=== PATIENT | female | born 1985 | race Two or more races ===

== ENCOUNTER 2016-09-16 18:10 | Emergency (ER) | payer BC, MEDICAID ==
[~2016-09-16] VITALS: Ht 157.5 cm; Wt 54.4 kg
[~2016-09-16 18:10] MED LIST: BENTYL10 MG ORAL
[2016-09-16] MEDS ORDERED: NKM (18:26)
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
[2016-09-16] MEDS ORDERED: NAPROSYN500 M1 ORAL (19:14)
[2016-09-16 19:25] VITALS: BP 120/74
--- NOTE | 2016-09-17 11:24 | Diagnostic Imaging Report ---
Indication: Pain Findings: 3 views of the right wrist were obtained. No acute fractures, malalignment, erosions or periostitis are identified. Bone mineralization is within normal limits. Soft tissues are unremarkable. Impression: Negative examination of the right wrist.
== END 2016-09-16 19:25 | disposition home or self-care (01) ==
LOC: EMR 18:47
DX: S63.501A Unspecified sprain of right wrist, initial encounter (principal); V43.52XA Car driver injured in collision with other type car in traffic accident, initial encounter; Y93.9 Activity, unspecified; Y92.410 Unspecified street and highway as the place of occurrence of the external cause
CPT/HCPCS: 29260; 99283

== ENCOUNTER 2016-12-03 16:16 | Emergency (ER) | payer BC, MEDICAID ==
[~2016-12-03] VITALS: Ht 157.5 cm; Wt 54.4 kg
[~2016-12-03 16:16] MED LIST changes: +NAPROSYN500 M1 ORAL; +NKM
--- NOTE | 2016-12-03 16:58 | Emergency Room Report ---
History of Present Illness General Chief Complaint: Headache Source: Patient Present Illness HPI 31 YO Female presents to the ED C/O 01/23 in severity burning/constant left sided head and neck pain progressive x 2 days with mild sensitivity to light. pt. states she took tylenol with no relief this am. pt. denies trauma or fall, denies nausea or vomiting. pt. denies dizziness or changes to her vision. pt. reports hx of cluster headache several years ago but states these symptoms are different. pt. denies fever, chills or rash. pt. reports pain radiates between the left shoulder to the left side of the head, reports burning feels superficial not deep. Denies abdominal pain, dysuria, frequency or . reports having an IUD in place. denies recent spinal procedure or LP. Denies imbalance, CP, Palpitations, LOC, AMS, dizziness, Changes in Vision, Sensation, paresthesias, or a sudden onset of a severe headache. Allergies: Coded Allergies: No Known Allergies (Unverified , 07/27/15) Patient History Past Medical History: see triage record Past Surgical History: none Pertinent Family History: none Last Menstrual Period: 10/28/16 Now: No Reviewed Nursing Documentation: PMH: Agreed, PSxH: Agreed Nursing Documentation-PMH Past Medical History: No Stated History Review of Systems All Other Systems: negative except mentioned in HPI Physical Exam Vital Signs Date Time Temp Pulse Resp B/P Pulse Ox O2 Delivery O2 Flow Rate FiO2 12/03/16 16:25 98.1 83 15 119/80 99 Room Air Sp02 EP Interpretation: reviewed, normal General Appearance: no apparent distress, alert, GCS 15, non-toxic Head: normocephalic, atraumatic Eyes: bilateral eye PERRL, bilateral eye normal inspection, bilateral eye other - no appreciable photophobia on exam, no erythema of the eyes. ENT: hearing grossly normal, normal voice, TMs + canals normal, uvula midline, moist mucus membranes, other - no erythema, no tonsillar swelling, no LAD Neck: full range of motion, no meningismus, no bony tend, supple/symm/no masses , tender lateral - left sided ttp radiating down into the left shoulder and up to the left occipital area. Respiratory: chest non-tender, lungs clear, normal breath sounds, speaking full sentences Cardiovascular #1: regular rate, rhythm, no edema Genitourinary: normal inspection, no CVA tenderness Musculoskeletal: back normal, gait/station normal, normal range of motion, tender - TTP to the left trapezius /cervical paraspinal musculature, no midline bony ttp, FROM Neurologic: alert, oriented x3, responsive, motor strength/tone normal, sensory intact, cerebellar normal, normal gait, speech normal, no pronator, other - equal principal technical architect strength, negative hoffmans, negative rhomberg Psychiatric: judgement/insight normal, memory normal, mood/affect normal Skin: normal color, no rash, warm/dry, well hydrated Lymphatic: no adenopathy Medical Decision Making PA Attestation Dr. Monsalve is my supervising Physician whom patient management has been discussed with. Diagnostic Impression: Primary Impression: UTI (urinary tract infection) Qualified Codes: N30.00 - Acute cystitis without hematuria Additional Impression: Headache Qualified Codes: R51 - Headache ER Course 31 YO Female presents to the ED C/O 01/23 in severity burning/constant left sided head and neck pain progressive x 2 days with mild sensitivity to light. pt. states she took tylenol with no relief this am. pt. denies trauma or fall, denies nausea or vomiting. pt. denies dizziness or changes to her vision. pt. reports hx of cluster headache several years ago but states these symptoms are different. pt. denies fever, chills or rash. pt. reports pain radiates between the left shoulder to the left side of the head, reports burning feels superficial not deep. Denies abdominal pain, dysuria, frequency or . reports having an IUD in place. denies recent spinal procedure or LP. Denies imbalance, CP, Palpitations, LOC, AMS, dizziness, Changes in Vision, Sensation, paresthesias, or a sudden onset of a severe headache. Described as constant ache and burning sensation radiating between left posterior shoulder to the left posterior head. Ddx considered but are not limited to migraine, SAH, Psedudo motor Cerebri, Mass lesion, Cluster HARVEY, Tension HARVEY, vertebral artery dissection, UTI, . Shingles, Muscle strain. Vital signs: are WNL, pt. is afebrile H&PE are most consistent with progressive HARVEY in a non -toxic, neurologically normal patient without fever or meningismus. pt. does not exhibit focal neurological deficit or weakness on physical exam. pt. description of HARVEY is not consistent with migraine, tension, or cluster HARVEY. will r/o UTI. suspicious for muscular strain vs spasm given ttp to the left trapezius. ORDERS: - none required at this time, dx is clinical. -UA: few bacteria with elevated WBC's and leuks will treat as UTI even though squamous cells are present. Urine hcg: negative ED INTERVENTIONS: - Reglan PO -IM Toradol -Flexeril PO I do not suspect an emergent condition at this time. with current presentation pt. is stable for close outpatient follow up and ED Return precautions. d/w pt. UA is suspicious for UTI, and that I will treat as neck muscle strain due to ttp to the left trapezius. d/w pt. to follow up with PCP in 3-5 days and Neurologist if symptoms continue. d/w pt. to return promptly to the ED with any new symptoms or worsening of her current symptoms. DISCHARGE: At this time pt. is stable for d/c to home. Will provide printed patient care instructions, and any necessary prescriptions. Care plan and follow up instructions have been discussed with the patient prior to discharge. Labs Test 12/03/16 17:00 Urine Color Pale yellow Urine Appearance Clear Urine pH 7 (4.5-8.0) Urine Specific [place] 1.010 (1.005-1.035) Urine Protein Negative (NEGATIVE) Urine Glucose (UA) Negative (NEGATIVE) Urine Ketones Negative (NEGATIVE) Urine Occult Blood Negative (NEGATIVE) Urine Nitrite Negative (NEGATIVE) Urine Bilirubin Negative (NEGATIVE) Urine Urobilinogen Normal MG/DL (0.0-1.0) Urine Leukocyte Esterase 1+ (NEGATIVE) Urine RBC 0 /HPF (0 - 2) Urine WBC 5-10 /HPF (0 - 2) Urine Squamous Epithelial Cells Many /LPF (NONE/OCC) Urine Bacteria Few /HPF (NONE) Urine HCG, Qualitative Negative Last Vital Signs Date Time Temp Pulse Resp B/P Pulse Ox O2 Delivery O2 Flow Rate FiO2 12/03/16 16:25 98.1 83 15 119/80 99 Room Air Disposition: HOME, SELF-CARE Condition: Stable Scripts Nitrofurantoin Monohyd/M-Cryst* (MACROBID 100 MG*) 100 Mg Capsule 100 MG ORAL EVERY 12 HOURS for 5 Days, #10 CAP Prov: Xochitl Frye.Bj 12/03/16 Ibuprofen* (MOTRIN*) 600 Mg Tablet 600 MG ORAL THREE TIMES A DAY, #20 TAB 0 Refills Prov: Xochitl Frye 12/03/16 Cyclobenzaprine Hcl* (FLEXERIL*) 10 Mg Tablet 10 MG ORAL THREE TIMES A DAY for 7 Days, #21 TAB Prov: Xochitl Frye 12/03/16 Referrals: [facility]ERR[facility] (PCP) Patient Instructions: General Headache Without Cause, Urinary Tract Infection, Upue-in-Qjhi Additional Instructions: Take medications as directed. Follow up with a Primary Care Provider in 3-5 days, even if your symptoms have resolved. --Please review list of primary care clinics, if you do not already have a primary care provider Return sooner to ED if new symptoms occur, or current symptoms become worse. Do not drink alcohol, drive, or operate heavy machinery while taking Flexeril as this may cause drowsiness. - Please note that this Emergency Department Report was dictated using [employer] engine assembler technology software, occasionally this can lead to erroneous entry secondary to interpretation by the dictation equipment. Xochitl Frye Dec 03, 2016 16:58
[2016-12-03] MEDS ORDERED: Ketorolac 60mg Inj IM ONE (17:00)
[2016-12-03 17:10] VITALS: BP 119/80
[2016-12-03 17:14] LABS: APPEARANCE,URINE CLEAR; KETONES,URINE NEGATIVE (NEGATIVE); LEUKOCYTE ESTERASE ,URINE 1+ (NEGATIVE); NITRITE,URINE NEGATIVE (NEGATIVE); PH,URINE 7 (4.5-8.0); PROTEIN,URINE NEGATIVE (NEGATIVE); UROBILINOGEN,URINE NORMAL MG/DL (0.0-1.0)
[2016-12-03 17:21] LABS: BACTERIA,URINE FEW /HPF; RBC,URINE 0 /HPF (0 - 2); SQUAMOUS EPITHELIAL CELL,UR MANY /LPF (NONE/OCC)
[2016-12-03] MEDS ORDERED: CYCLOBENZAPRINE10 MG ORAL (17:52)
[2016-12-03] MEDS ORDERED: NITROFURANTOIN100 M2 ORAL (17:52)
[2016-12-03] MEDS ORDERED: IBUPROFEN600 MG ORAL (17:52)
[2016-12-03 17:55] VITALS: BP 119/80
[2016-12-03] MEDS ORDERED: Cyclobenzaprine 10mg Tab ORAL ONE (18:00)
== END 2016-12-03 18:03 | disposition home or self-care (01) ==
LOC: EMR 16:53
DX: N39.0 Urinary tract infection, site not specified (principal); R51 Headache; M54.2 Cervicalgia; Z97.5 Presence of (intrauterine) contraceptive device; M25.512 Pain in left shoulder
CPT/HCPCS: 81003; 81025; 96372; 99283

== ENCOUNTER 2018-02-07 11:52 | Emergency (ER) | payer BC, MEDICAID ==
[~2018-02-07] VITALS: Ht 157.5 cm; Wt 54.4 kg
[~2018-02-07 11:52] MED LIST changes: +CIPROFLOXACIN500 M2 ORAL; +CYCLOBENZAPRINE10 MG ORAL; +IBUPROFEN600 MG ORAL; +NITROFURANTOIN100 M2 ORAL
[2018-02-07] MEDS ORDERED: NKM (12:00)
[2018-02-07] MEDS ORDERED: LORazepam 1mg tab ORAL ONE (12:15)
[2018-02-07 12:42] VITALS: BP 132/78
[2018-02-07 12:55] LABS: APPEARANCE,URINE CLEAR; BILIRUBIN, URINE NEGATIVE (NEGATIVE); COLOR,URINE PALE YELLOW; GLUCOSE, URINE (UA) NEGATIVE (NEGATIVE); KETONES,URINE NEGATIVE (NEGATIVE); LEUKOCYTE ESTERASE ,URINE 2+ (NEGATIVE); NITRITE,URINE NEGATIVE (NEGATIVE); PH,URINE 7 (4.5-8.0); PROTEIN,URINE NEGATIVE (NEGATIVE); UROBILINOGEN,URINE NORMAL MG/DL (0.0-1.0)
--- NOTE | 2018-02-07 13:00 | Emergency Room Report ---
History of Present Illness General Chief Complaint: General Complaint Source: Patient Present Illness HPI 33-year-old female presents to the emergency department complaining of intermittent episodes of chest discomfort that she describes as tightness in the middle of her sternum that feels as though something is stuck inside. Patient also reports episode of hyperventilation this morning. Patient states she feels as though she cannot take a deep breath and has to actively think about breathing. Patient states that this morning she experienced dizziness and had numbness and tingling in her fingers. Patient denies syncope she reports history of heart problems in her family she denies personal history of cardiac abnormalities were problems. Patient denies and states she is on her period right now. she denies fevers, chills, or vomiting. Patient ascribes nausea and decrease in appetite. Patient states that she just finished taking exams at school and she endorses that the last few nights she is not been getting much sleep and estimates about 3-4 hours of sleep nightly. Patient denies similar episodes in the past. She denies cough, aspiration, or history of GERD. Patient denies burning sensations in the epigastric area. She denies recent travel and reports that she is on control medication. Denies leg pain/claudication. Denies drug use or hx of substance abuse. Pt. reports that she is currently on treatment for UTI. Allergies: Coded Allergies: No Known Allergies (Unverified , 07/27/15) Patient History Past Medical History: see triage record Past Surgical History: unable to obtain Pertinent Family History: none Last Menstrual Period: 01/31/18 Now: No Reviewed Nursing Documentation: PMH: Agreed; PSxH: Agreed Nursing Documentation-PMH Hx Cardiac Problems: No - highcholesterol (control by diet) Review of Systems All Other Systems: negative except mentioned in HPI Physical Exam Vital Signs Date Time Temp Pulse Resp B/P (MAP) Pulse Ox O2 Delivery O2 Flow Rate FiO2 02/07/18 11:54 98.1 98 18 146/85 98 Room Air Sp02 EP Interpretation: reviewed, normal General Appearance: no apparent distress, alert, GCS 15, non-toxic Head: normocephalic, atraumatic Eyes: bilateral eye normal inspection, bilateral eye PERRL ENT: hearing grossly normal, normal voice Neck: full range of motion Respiratory: lungs clear, normal breath sounds, no respiratory distress, no wheezing, speaking full sentences Cardiovascular #1: regular rate, rhythm Musculoskeletal: back normal, gait/station normal, normal range of motion, non- tender Neurologic: alert, oriented x3, responsive, motor strength/tone normal, sensory intact, speech normal, grossly normal Psychiatric: judgement/insight normal Skin: normal color, no rash, warm/dry, well hydrated Medical Decision Making PA Attestation Dr. Monsalve is my supervising Physician whom patient management has been discussed with. Diagnostic Impression: Primary Impression: Anxiety as acute reaction to exceptional stress ER Course 33-year-old female presents to the emergency department complaining of intermittent episodes of chest discomfort that she describes as tightness in the middle of her sternum that feels as though something is stuck inside. Patient also reports episode of hyperventilation this morning. Patient states she feels as though she cannot take a deep breath and has to actively think about breathing. Patient states that this morning she experienced dizziness and had numbness and tingling in her fingers. Patient denies syncope she reports history of heart problems in her family she denies personal history of cardiac abnormalities were problems. Patient denies and states she is on her period right now. she denies fevers, chills, or vomiting. Patient ascribes nausea and decrease in appetite. Patient states that she just finished taking exams at school and she endorses that the last few nights she is not been getting much sleep and estimates about 3-4 hours of sleep nightly. Patient denies similar episodes in the past. She denies cough, aspiration, or history of GERD. Patient denies burning sensations in the epigastric area. She denies recent travel and reports that she is on control medication. Denies leg pain/claudication. Denies drug use or hx of substance abuse. Pt. reports that she is currently on treatment for UTI. Ddx considered but are not limited to anxiety, RI, PE, asthma, thyroid storm, hyperthyroid, a-fib, EPS just to name a few. Vital signs: are WNL, pt. is afebrile H&PE are most consistent with anxiety attack- no cardiac RF, some RF for PE is that the pt. is on control- PERC rules cannot be applied, WELLS Criteria of 0 -Low risk group: 1.3% chance of PE in an ED population ORDERS: -EKG: NSR 88 BPM -CXR: unremarkable -UA: - consistent with menses and UTI- ( pt. already on abx) -Urine Hcg:Negative ED INTERVENTIONS: - 1mg Ativan D/w pt An emergent condition is not identified at this time, d/w pt. clinical decision making of this process. D/w pt. that anxiety may require ongoing treatment by a psychiatric professional or PCP if symptoms are occuring frequently. d/w pt. the risks of benzodiazepines including dependence. Pt. instructed to only take medication as an abortive therapy and not for prevention. - I reviewed this pt. CURES report and there are no active prescriptions for controlled substances in [place] at this time. DISCHARGE: At this time pt. is stable for d/c to home. Will provide printed patient care instructions, and any necessary prescriptions. Care plan and follow up instructions have been discussed with the patient prior to discharge. EKG Diagnostic Results EP Interpretation: Dr. Monsalve Rate: normal - 88 BPM Rhythm: NSR ST Segments: no acute changes ASA given to the pt in ED: No PA Scribe Text This Interpretation was scribed by ALDAIR Frye. Chest X-Ray Diagnostic Results Chest X-Ray Diagnostic Results : Chest X-Ray Ordered: Yes # of Views/Limited/Complete: 1 View Indication: Shortness of Breath EP Interpretation: Yes ALDAIR Xray: Interpretation reviewed, by supervising MD, and agrees with findings. Interpretation: no consolidation, no effusion, no pneumothorax, no acute cardiopulmonary disease Impression: No acute disease Electronically Signed by: Xochitl Frye PA-C Last Vital Signs Date Time Temp Pulse Resp B/P (MAP) Pulse Ox O2 Delivery O2 Flow Rate FiO2 02/07/18 12:42 98.1 68 20 132/78 99 Room Air Disposition: HOME, SELF-CARE Condition: Stable Scripts Albuterol Sulfate* (ALBUTEROL SULFATE MDI*) 8.5 Gm Hfa.aer.ad 2 PUFF INH Q4H, #1 INH 0 Refills Prov: Xochitl Frye 02/07/18 Lorazepam* (ATIVAN*) 1 Mg Tablet 1 MG ORAL Q8HR PRN for Per rx protocol, #6 TAB Prov: Xochitl Frye 02/07/18 Patient Instructions: Generalized Anxiety Disorder, Shortness of Breath, Easy- to-Read Additional Instructions: Take medications as directed. Follow up with a Primary Care Provider in 3-5 days, even if your symptoms have resolved. --Please review list of primary care clinics, if you do not already have a primary care provider Return sooner to ED if new symptoms occur, or current symptoms become worse. Do not drink alcohol, drive, or operate heavy machinery while taking Ativan as this may cause drowsiness. - Please note that this Emergency Department Report was dictated using [employer] support equipment assembler technology software, occasionally this can lead to erroneous entry secondary to interpretation by the dictation equipment. Xochitl Frye Feb 07, 2018 13:00
[2018-02-07] MEDS ORDERED: ATIVAN1 MG ORAL (13:37)
[2018-02-07 13:50] VITALS: BP 132/78
[2018-02-07] MEDS ORDERED: ALBUTEROL SULF8.5 GM INH (13:57)
--- NOTE | 2018-02-07 14:04 | Diagnostic Imaging Report ---
Indication: Cough Comparison: None A single view chest radiograph was obtained. Findings: Cardiomediastinal appearance is within normal limits for age. The lungs are clear. Pulmonary vascularity is appropriate. The diaphragmatic contour is smooth and costophrenic angles are sharp. No pleural effusions are identified. The bones are unremarkable. Impression: No acute findings
== END 2018-02-07 13:50 | disposition home or self-care (01) ==
LOC: EMR 13:49
DX: F41.9 Anxiety disorder, unspecified (principal); R07.89 Other chest pain
CPT/HCPCS: 71045; 81003; 81025; 93005; 99283

== ENCOUNTER 2018-04-25 15:27 | Emergency (ER) | payer BC, MEDICAID ==
[~2018-04-25] VITALS: Ht 160 cm; Wt 53.5 kg
[~2018-04-25 15:27] MED LIST changes: +ALBUTEROL SULF8.5 GM INH; +ATIVAN1 MG ORAL
[2018-04-25] MEDS ORDERED: ADDERAL20 MG ORAL (15:55)
[2018-04-25 15:59] VITALS: BP 108/58
--- NOTE | 2018-04-25 15:59 | NUR ---
ED Nurse Note: pt walked in c/o abd pain and chills, diarrhea and nausea x 2 days, pt states pain is sharp, denies eating anything or injuries. Pt AA&ox4, gcs=15, skin warm and dry, resp even and unlabored, -n/v/d, ambulates w/ steady gait, will cont monitor.
[2018-04-25] MEDS ORDERED: Mylanta II UD 30ml ORAL ONE (16:15)
[2018-04-25] MEDS ORDERED: Lidocaine 2% Visc 15ml soln ORAL ONE (16:15)
--- NOTE | 2018-04-25 16:38 | Emergency Room Report ---
History of Present Illness General Chief Complaint: Abdominal Pain Source: Patient Present Illness HPI 33-year-old female presents to the emergency department complaining of 10 out of 10 in severity epigastric abdominal pain with pain in her back as well 2 days. Patient reports acute onset after eating and that her pain has been constant. Patient is nausea but denies vomiting she reports tenderness to the epigastric area as well. Patient denies she denies constipation or diarrhea. Patient describes her pain as sharp. Patient states that pancreas problems run in her family and that she is positive for autoimmune antibodies. Patient denies significant past medical history otherwise. Patient denies history of high blood pressure she denies chest pain, dizziness or paresthesias to the lower extremities. Patient denies dyspnea or chest pain. Allergies: Coded Allergies: No Known Allergies (Unverified , 07/27/15) Patient History Past Medical History: see triage record Past Surgical History: none Pertinent Family History: none Last Menstrual Period: 2 weeks ago Reviewed Nursing Documentation: PMH: Agreed; PSxH: Agreed Nursing Documentation-PMH Past Medical History: No History, Except For Hx Cardiac Problems: No - high cholesterol Hx Hypertension: No Hx Pacemaker: No Hx Asthma: No Hx COPD: No Hx Diabetes: No Hx Cancer: No Hx Gastrointestinal Problems: No Hx Dialysis: No History Of Psychiatric Problem: No Hx Neurological Problems: Yes - ADHD Hx Cerebrovascular Accident: No Hx Seizures: No Review of Systems All Other Systems: negative except mentioned in HPI Physical Exam Vital Signs Date Time Temp Pulse Resp B/P (MAP) Pulse Ox O2 Delivery O2 Flow Rate FiO2 04/25/18 15:50 98.8 104 20 108/58 99 Room Air Sp02 EP Interpretation: reviewed, normal General Appearance: alert, GCS 15, non-toxic, mild distress Head: normocephalic, atraumatic Eyes: bilateral eye normal inspection, bilateral eye PERRL ENT: hearing grossly normal, normal voice Neck: full range of motion Respiratory: lungs clear, normal breath sounds, speaking full sentences Cardiovascular #1: regular rate, rhythm Gastrointestinal: normal bowel sounds, soft, non-distended, no guarding, tenderness - Epigastric and RUQ ttp. Rectal: deferred Genitourinary: normal inspection, no CVA tenderness Musculoskeletal: back normal, gait/station normal, normal range of motion, non- tender Neurologic: alert, oriented x3, responsive, motor strength/tone normal, sensory intact, speech normal, grossly normal Psychiatric: judgement/insight normal Skin: normal color, no rash, warm/dry, well hydrated Medical Decision Making PA Attestation Dr. Rosa is my supervising Physician whom patient management has been discussed with. Diagnostic Impression: Primary Impression: Acute hepatitis ER Course 29-year-old female presents to the emergency department complaining of 7 out of 10 in severity sharp pain under the left clavicle and left shoulder region 3 days. Patient reports pain with attempts to raise her arm and attempts to sleep , and side. Patient reports pain started after awakening when she had to sleep on the floor. Patient states that she has been having a sleep on the floor lately and makes it very difficult for her to sleep at night with the pain. Patient states sometimes she has pain with taking a deep breath. She denies shortness of breath or difficulty breathing. Patient denies abdominal pain, flank pain or tenderness, nausea, vomiting or jaw pain. Patient denies cardiac history. Patient reports that she is she just recently found out by having a positive test at home. Patient states she is only been taking Tylenol for her symptoms however she is not getting any relief. She denies trauma or fall she denies strenuous activities or heavy lifting. Patient reports on occasion pain will radiate down the left arm she denies paresthesias in that she is attempting to sleep on that side. She denies unilateral weakness, headache, dizziness, changes in her vision. Pt. reports LMP was February, she missed her period in March, and tested urine 4 days ago on Sunday. She denies vaginal d/c. Ddx considered but are not limited to gastritis, aortic dissection, acute appy, UC, PUD, GE, pancreatitis, gallstone, PNA just to name a few Vital signs: are WNL, pt. is afebrile H&PE are most consistent with Gastritis, will r/o pancreatitis. Dissection of very very low suspicion at this time. ORDERS: -CBC, CMP, LIPASE: Significant elevation in LFT's and Alk Phos, normal lipase, no leukocytosis. -UA: Indicative for UTI -URINE HCG: Negative -PT/PTT : both elevated PT is 12.6 ED INTERVENTIONS: -PO zofran 4mg. / Pepcid, Mylanta, Lidocaine --PO -4mg MOrphine IV - *Accepting MD: GUEVARA DISPOSITION: at this time pt. will be admitted to Dr. Mae for acute hepatitis. Dr. Mae agreed to admit the pt. and to continue pt. care management. Labs Test 04/25/18 16:26 04/25/18 19:00 White Blood Count 2.5 K/UL (4.8-10.8) Red Blood Count 4.46 M/UL (4.20-5.40) Hemoglobin 13.3 G/DL (12.0-16.0) Hematocrit 40.4 % (37.0-47.0) Mean Corpuscular Volume 90 FL (80-99) Mean Corpuscular Hemoglobin 29.8 PG (27.0-31.0) Mean Corpuscular Hemoglobin Concent 33.0 G/DL (32.0-36.0) Red Cell Distribution Width 11.2 % (11.6-14.8) Platelet Count 264 K/UL (150-450) Mean Platelet Volume 6.4 FL (6.5-10.1) Neutrophils (%) (Auto) % (45.0-75.0) Lymphocytes (%) (Auto) % (20.0-45.0) Monocytes (%) (Auto) % (1.0-10.0) Eosinophils (%) (Auto) % (0.0-3.0) Basophils (%) (Auto) % (0.0-2.0) Differential Total Cells Counted 100 Neutrophils % (Manual) 58 % (45-75) Lymphocytes % (Manual) 32 % (20-45) Monocytes % (Manual) 7 % (1-10) Eosinophils % (Manual) 2 % (0-3) Basophils % (Manual) 1 % (0-2) Band Neutrophils 0 % (0-8) Platelet Estimate Adequate Platelet Morphology Normal Red Blood Cell Morphology Normal Urine Color Yellow Urine Appearance Clear Urine pH 8 (4.5-8.0) Urine Specific Perry 1.010 (1.005-1.035) Urine Protein Negative (NEGATIVE) Urine Glucose (UA) Negative (NEGATIVE) Urine Ketones Negative (NEGATIVE) Urine Blood Negative (NEGATIVE) Urine Nitrite Negative (NEGATIVE) Urine Bilirubin Negative (NEGATIVE) Urine Urobilinogen Normal MG/DL (0.0-1.0) Urine Leukocyte Esterase 1+ (NEGATIVE) Urine RBC 0-2 /HPF (0 - 2) Urine WBC 0-2 /HPF (0 - 2) Urine Squamous Epithelial Cells Few /LPF (NONE/OCC) Urine Bacteria Moderate /HPF (NONE) Urine HCG, Qualitative Negative (NEGATIVE) Sodium Level 134 MMOL/L (136-145) Potassium Level 3.8 MMOL/L (3.5-5.1) Chloride Level 99 MMOL/L (98-107) Carbon Dioxide Level 25 MMOL/L (21-32) Anion Gap 10 mmol/L (5-15) Blood Urea Nitrogen 10 mg/dL (7-18) Creatinine 0.9 MG/DL (0.55-1.30) Estimat Glomerular Filtration Rate > 60 mL/min (>60) Glucose Level 108 MG/DL (74-106) Calcium Level 9.3 MG/DL (8.5-10.1) Total Bilirubin 1.6 MG/DL (0.2-1.0) Direct Bilirubin 0.8 MG/DL (0.0-0.3) Aspartate Amino Transf (AST/SGOT) 602 U/L (15-37) Alanine Aminotransferase (ALT/SGPT) 850 U/L (12-78) Alkaline Phosphatase 216 U/L (46-116) Total Protein 8.3 G/DL (6.4-8.2) Albumin 4.1 G/DL (3.4-5.0) Globulin 4.2 g/dL Albumin/Globulin Ratio 1.0 (1.0-2.7) Amylase Level 52 U/L (25-115) Lipase 266 U/L (73-393) Prothrombin Time 12.6 SEC (9.30-11.50) Prothromb Time International Ratio 1.2 (0.9-1.1) Activated Partial Thromboplast Time 21 SEC (23-33) CT/MRI/US Diagnostic Results CT/MRI/US Diagnostic Results : Imaging Test Ordered: Abdominal US Impression "Negative Gutierrez sign, liver, gallbladder, pancreas are within normal limits. No evidence of gallstones." Per official radiology report- Please see report for specific details. Last Vital Signs Date Time Temp Pulse Resp B/P (MAP) Pulse Ox O2 Delivery O2 Flow Rate FiO2 04/25/18 15:50 98.8 104 20 108/58 99 Room Air Disposition: ADMITTED INPATIENT Condition: Xochitl Og Apr 25, 2018 16:38
[2018-04-25 16:53] LABS: HEMATOCRIT 40.4 % (37.0-47.0); HEMOGLOBIN 13.3 G/DL (12.0-16.0); MEAN CORPUSCULAR VOLUME 90 FL (80-99); PLATELET COUNT 264 K/UL (150-450); RED BLOOD COUNT 4.46 M/UL (4.20-5.40); RED CELL DISTRIBUTION WIDTH 11.2 % (11.6-14.8); WHITE BLOOD COUNT 2.5 K/UL (4.8-10.8)
[2018-04-25 17:00] VITALS: BP 110/58
--- NOTE | 2018-04-25 17:00 | NUR ---
ED Nurse Note: pt reports pain is tolerable at this time after medications, resp even and unlabored, will cont monitor. reports nausea is better with medication
[2018-04-25 17:08] LABS: APPEARANCE,URINE CLEAR; BILIRUBIN, URINE NEGATIVE (NEGATIVE); GLUCOSE, URINE (UA) NEGATIVE (NEGATIVE); KETONES,URINE NEGATIVE (NEGATIVE); LEUKOCYTE ESTERASE ,URINE 1+ (NEGATIVE); NITRITE,URINE NEGATIVE (NEGATIVE); PH,URINE 8 (4.5-8.0); PROTEIN,URINE NEGATIVE (NEGATIVE); UROBILINOGEN,URINE NORMAL MG/DL (0.0-1.0)
[2018-04-25 17:11] LABS: COLOR,URINE YELLOW
[2018-04-25 17:18] LABS: ANION GAP 10 mmol/L (5-15); BLOOD UREA NITROGEN 10 mg/dL (7-18); CALCIUM 9.3 MG/DL (8.5-10.1); CARBON DIOXIDE 25 MMOL/L (21-32); CHLORIDE 99 MMOL/L (98-107); CREATININE 0.9 MG/DL (0.55-1.30); POTASSIUM 3.8 MMOL/L (3.5-5.1); SODIUM 134 MMOL/L (136-145)
[2018-04-25 17:28] LABS: ALANINE AMINOTRANSFERASE 850 U/L (12-78); ALBUMIN 4.1 G/DL (3.4-5.0); ALKALINE PHOSPHATASE 216 U/L (46-116); AMYLASE 52 U/L (25-115); ASPARTATE AMINO TRANSFERASE 602 U/L (15-37); BILIRUBIN,TOTAL 1.6 MG/DL (0.2-1.0)
[2018-04-25 17:31] LABS: BILIRUBIN,DIRECT 0.8 MG/DL (0.0-0.3)
--- NOTE | 2018-04-25 18:30 | NUR ---
ED Nurse Note: ultrasound at bedside.
[2018-04-25 19:00] VITALS: BP 114/60
[2018-04-25] MEDS ORDERED: ADDERALL 10 MG10 MG ORAL (19:55)
[2018-04-25] MEDS ORDERED: VITAMIN C500 M1 ORAL (19:55)
[2018-04-25] MEDS ORDERED: MULTIVITAMINS1 EAC2 ORAL (19:55)
[2018-04-25] MEDS ORDERED: COLLAGEN PLUS1 EACH PO (19:55)
[2018-04-25 20:01] LABS: INR 1.2 (0.9-1.1)
[2018-04-25 21:00] VITALS: BP 118/60
--- NOTE | 2018-04-25 21:00 | NUR ---
ED Nurse Note: Pt reports pain 8/10 progressively worsening, PA notified.
[2018-04-25] MEDS ORDERED: Morphine Sulfate 4mg/ml Inj (IV/IM USE ONLY) IVP ONE (21:15)
[2018-04-25 21:50] VITALS: BP 125/73
--- NOTE | 2018-04-25 21:50 | NUR ---
ED Nurse Note: pt left with all her belongings. vss. ambulatory w/ steady gait, iv intact and patent.
--- NOTE | 2018-04-25 21:50 | NUR ---
ED Nurse Note: spoke with JERMAINE Ruff from [facility] in [facility], pt going to room 506 A, ambulance personnel at the bedside.
--- NOTE | 2018-04-26 10:05 | Diagnostic Imaging Report ---
Indication:Abdominal pain Technique: Grayscale and duplex Doppler imaging of the abdomen performed. Comparison: None Findings: The liver is heterogeneous with a coarsened echotexture. CBD is normal diameter measuring 1.7 mm. The gallbladder is unremarkable. The demonstrated part of the pancreas, aorta and IVC show no abnormalities. Both kidneys appear unremarkable. The spleen is normal in size. There is no biliary ductal dilatation identified. Doppler evaluation of the main portal vein shows patency. There is no ascites. No hydronephrosis seen. Impression: Suspected chronic liver disease given coarsened echotexture and heterogeneity. Correlate clinically.
== END 2018-04-25 21:50 | disposition other institution (70) ==
LOC: EMR 17:33
DX: B17.9 Acute viral hepatitis, unspecified (principal); F90.9 Attention-deficit hyperactivity disorder, unspecified type
CPT/HCPCS: 36415; 76700; 80053; 81003; 81025; 82150; 82248; 83690; 85007; 85025; 85610; 85730; 87086; 96361; 96374; 99285; J2270